=== PATIENT | male | born 1990 | race Caucasian/White ===

== ENCOUNTER 2021-03-09 09:17 | Emergency (ER) | payer BC, OTHER ==
[~2021-03-09] VITALS: Ht 182.9 cm; Wt 81.7 kg
[~2021-03-09 09:17] MED LIST: ACETAMINOPHEN-120 ML PO; AUGMENTIN 875875 MG PO; NOHOMEMEDICATIONS
[2021-03-09 09:54] LABS: ABSOLUTE NEUTROPHILS 5.5 thou/uL (1.4-8.2); BASOPHILS 0.7 % (0.0-2.0); EOSINOPHILS 2.5 % (0.0-3.0); HEMATOCRIT 41.4 % (42.0-52.0); HEMOGLOBIN 14.1 gm/dL (14.0-18.0); LYMPHOCYTES 27.2 % (24.0-44.0); MCH 30.9 pg (26.0-34.0); MCHC 34.1 g/dL (28.0-37.0); MCV 90.5 fL (80.0-100.0); MONOCYTES 7.7 % (1.0-8.0); PLATELET COUNT 310 thou/uL (150-400); POLYS 61.9 % (36.0-66.0); RBC 4.58 mil/uL (4.50-6.00); RDW 13.3 % (10.5-14.5); WBC 8.9 thou/uL (4.0-11.0)
[2021-03-09 10:06] LABS: CALCIUM 8.7 mg/dL (8.5-10.1); POTASSIUM 3.9 mmol/L (3.5-5.1)
[2021-03-09 10:14] LABS: ALBUMIN 3.8 g/dL (3.4-5.0); TOTAL BILIRUBIN 0.2 mg/dL (0.2-1.0); TOTAL PROTEIN 6.9 g/dL (6.4-8.2)
[2021-03-09 11:02] VITALS: BP 153/98
== END 2021-03-09 11:02 | disposition home or self-care (01) ==
LOC: ER 09:17
PROVIDERS: Emergency Medicine
DX: S20.211A Contusion of right front wall of thorax, initial encounter (principal); S30.1XXA Contusion of abdominal wall, initial encounter; Z90.89 Acquired absence of other organs; Z98.890 Other specified postprocedural states; W01.198A Fall on same level from slipping, tripping and stumbling with subsequent striking against other object, initial encounter; Y93.89 Activity, other specified; Y92.89 Other specified places as the place of occurrence of the external cause; Y99.8 Other external cause status

== ENCOUNTER 2021-03-09 13:43 | Inpatient (IN) | payer BC, OTHER ==
[~2021-03-09] VITALS: Ht 182.9 cm; Wt 84.8 kg
[2021-03-09 13:55] VITALS: BP 111/70
[2021-03-09 13:57] VITALS: BP 93/54
[2021-03-09 14:19] LABS: ABSOLUTE NEUTROPHILS 8.8 thou/uL (1.4-8.2); BASOPHILS 0.8 % (0.0-2.0); EOSINOPHILS 0.9 % (0.0-3.0); HEMATOCRIT 40.4 % (42.0-52.0); HEMOGLOBIN 13.9 gm/dL (14.0-18.0); LYMPHOCYTES 29.5 % (24.0-44.0); MCH 30.8 pg (26.0-34.0); MCHC 34.3 g/dL (28.0-37.0); MCV 89.8 fL (80.0-100.0); MONOCYTES 5.3 % (1.0-8.0); PLATELET COUNT 329 thou/uL (150-400); POLYS 63.5 % (36.0-66.0); RDW 13.7 % (10.5-14.5); WBC 13.8 thou/uL (4.0-11.0)
[2021-03-09 14:28] LABS: CALCIUM 8.8 mg/dL (8.5-10.1); CREATININE 1.1 mg/dL (0.7-1.3)
[2021-03-09 14:34] LABS: TOTAL BILIRUBIN 0.4 mg/dL (0.2-1.0); TOTAL PROTEIN 6.9 g/dL (6.4-8.2)
[2021-03-09 15:11] VITALS: BP 93/54
[2021-03-09 15:27] VITALS: BP 100/56
--- NOTE | 2021-03-09 19:32 | NUR ---
PT ARRIVED TO FLOOR FROM ED PER CART IN STABLE CONDITION ACCOMPANIED BY FRIEND.ADMISSION HX,ASSESSMENT AND CAREPLAN COMPLETED.PIPELINE WELDER PLACED . SB AND REGULAR.RT LOWER ABDOMINAL/ FLANK PUNCTURED BRUSING NOTED APPEARED TO BE HEMATOMA.DR HEDRICK AWARE ABOUT PT ADMISSION TO FLOOR.FRIEND AT BS VISITING.NO VERBAL C/O.WILL CONTINUE TO MONITOR.
[2021-03-09 20:29] VITALS: BP 113/45
[2021-03-10 02:57] LABS: HEMATOCRIT 37.3 % (42.0-52.0); HEMOGLOBIN 12.7 gm/dL (14.0-18.0); MCH 30.9 pg (26.0-34.0); MCHC 34.1 g/dL (28.0-37.0); MCV 90.6 fL (80.0-100.0); RBC 4.12 mil/uL (4.50-6.00); RDW 13.3 % (10.5-14.5); WBC 9.5 thou/uL (4.0-11.0)
[2021-03-10 04:26] VITALS: BP 110/61
--- NOTE | 2021-03-10 05:33 | NUR ---
Assumed pt care at 1900. A/OX4,VSS. Denies pain on N/V on assessment. Up ad franchesca in room,encouraged to call for help as needed. SR/SB on telemetry. Pt has an ecchymosis/hematoma area on right lower quad with some laceration in the middle of it;tender to touch but otherwise doesn't hurt if not touched. Resting quietly at this time,will continue to monitor pt.
[2021-03-10 07:30] VITALS: BP 107/62
[2021-03-10 13:46] VITALS: BP 107/62
--- NOTE | 2021-03-10 15:06 | NUR ---
Assumed pt care at 7am.Pt in bed alert and ortiented x4,resting comfortably without c/o.Assessment completed.vss.Pt tolerated diet.Dr Gonzales notified about dc home today.Dr Hernández rounded on pt this afternoon around 1330,dc order noted.Dc summary compile and reviewed with pt and friend.Saline lock dc'd and pt dc home per wc with friend at 1400 accompanied by custom bow maker.
== END 2021-03-10 15:06 | disposition home or self-care (01) | DRG 605 ==
LOC: ER 13:43 → 4W 16:16 → EROBS 16:16 → 4W 16:17
PROVIDERS: Emergency Medicine; ADMIT Surgery; ATTEND Surgery
PROC: BW40ZZZ Ultrasonography of Abdomen (ICD-10-PCS; principal; 2021-03-09)
DX: S30.1XXA Contusion of abdominal wall, initial encounter (principal); Z90.49 Acquired absence of other specified parts of digestive tract; F17.210 Nicotine dependence, cigarettes, uncomplicated; S39.91XA Unspecified injury of abdomen, initial encounter; Z91.09 Other allergy status, other than to drugs and biological substances; X58.XXXA Exposure to other specified factors, initial encounter; Y93.89 Activity, other specified; Y92.89 Other specified places as the place of occurrence of the external cause; Y99.8 Other external cause status
CPT/HCPCS: 10045